=== PATIENT | female | born 1995 | race Caucasian/White ===

== ENCOUNTER 2016-09-18 19:38 | Outpatient (CLI) | payer OTHER ==
[~2016-09-18 19:38] MED LIST: BENTYL20 MG PO; COLACE100 MG PO; IBUPROFEN200 M1 PO; IMITREX50 MG PO; KEFLEX500 MG PO; LORADAMED10 MG PO; PYRIDIUM100 MG PO; SEROQUEL12.5 MG PO; TRI-ESTARYLLA1 EACH PO; birth control pill
[2016-09-18 20:02] VITALS: BP 133/80
[2016-09-18] MEDS ORDERED: PRENATAL TABLE1 EAC3 PO (20:38)
== END 2016-09-18 20:55 | disposition home or self-care (01) ==
LOC: LDRP-OP 19:38 → 2WEST 19:39 → LDRP-OP 09-19 10:39
DX: O48.0 Post-term pregnancy (principal); Z3A.41 41 weeks gestation of pregnancy
CPT/HCPCS: 59025; G0378

== ENCOUNTER 2016-09-19 21:22 | Outpatient (CLI) | payer OTHER ==
[~2016-09-19 21:22] MED LIST changes: +PRENATAL TABLE1 EAC3 PO
[2016-09-19 21:40] VITALS: BP 118/64
== END 2016-09-19 22:50 | disposition home or self-care (01) ==
LOC: LDRP-OP 21:22 → 2WEST 21:23 → LDRP-OP 09-21 09:26
DX: O48.1 Prolonged pregnancy (principal); Z3A.41 41 weeks gestation of pregnancy; O47.1 False labor at or after 37 completed weeks of gestation
CPT/HCPCS: 59025; G0378

== ENCOUNTER 2016-09-20 21:32 | Inpatient (IN) | payer OTHER ==
[~2016-09-20] VITALS: Ht 154.9 cm; Wt 79.1 kg
[2016-09-20 22:43] VITALS: BP 127/74
[2016-09-20 22:51] LABS: EOSINOPHIL (%) 0.8 % (0-5); EOSINOPHIL COUNT 0.1 K/uL (0-0.3); HEMATOCRIT 38.5 % (36.0-46.0); IMMATURE GRANULOCYTE (%) 0.9 % (0.0-0.7); IMMATURE GRANULOCYTE COUNT 0.1 K/uL; INSTRUMENT ABS NEUTROPHIL CT 7.2 K/uL; LYMPHOCYTE COUNT 1.5 K/uL (1.0-2.8); MCH 30.2 PG (29.0-34.0); MCV 88.7 FL (83-99); MEAN PLAT.VOLUME 13.1 uM^3 (9.5-12.4); MONOCYTE (%) 9.1 % (3-12); MONOCYTE COUNT 0.9 K/uL (0-0.8); NEUTROPHIL (%) 73.8 % (45-76); NEUTROPHIL COUNT 7.2 K/uL (1.8-6.4); PLATELET COUNT 167 K/uL (156-360); RBC DIS.WIDTH-CV 14.2 % (11.8-14.6); RBC DIS.WIDTH-SD 46.4 % (39-53); RED BLOOD COUNT 4.34 M/uL (3.80-5.20); WHITE BLOOD COUNT 9.8 K/uL (4.1-10.2)
[2016-09-20 23:29] VITALS: BP 129/82
[2016-09-21] VITALS (24 sets, daily range): BP systolic 101–139; BP diastolic 55–85
[2016-09-22 00:30] VITALS: BP 108/67
[2016-09-22 02:30] VITALS: BP 105/57
[2016-09-22 04:30] VITALS: BP 119/56
[2016-09-22 07:05] VITALS: BP 100/51
[2016-09-22 07:49] LABS: EOSINOPHIL (%) 0.1 % (0-5); HEMATOCRIT 22.9 % (36.0-46.0); IMMATURE GRANULOCYTE (%) 0.5 % (0.0-0.7); IMMATURE GRANULOCYTE COUNT 0.1 K/uL; INSTRUMENT ABS NEUTROPHIL CT 8.6 K/uL; LYMPHOCYTE COUNT 0.8 K/uL (1.0-2.8); MCH 30.1 PG (29.0-34.0); MCHC 34.1 G/DL (30.0-36.0); MCV 88.4 FL (83-99); MONOCYTE COUNT 0.9 K/uL (0-0.8); NEUTROPHIL (%) 82.5 % (45-76); NEUTROPHIL COUNT 8.6 K/uL (1.8-6.4); RBC DIS.WIDTH-CV 14.4 % (11.8-14.6); RBC DIS.WIDTH-SD 46.4 % (39-53); WHITE BLOOD COUNT 10.5 K/uL (4.1-10.2)
[2016-09-22 07:50] LABS: RED BLOOD COUNT 2.59 M/uL (3.80-5.20)
[2016-09-22 08:27] LABS: PLAT.SUFFICIENCY DECREASED
[2016-09-22 08:28] LABS: PLATELET COUNT 107 K/uL (156-360)
[2016-09-22 12:00] VITALS: BP 101/56
[2016-09-22 15:00] VITALS: BP 109/62
[2016-09-23 07:41] VITALS: BP 106/56
[2016-09-23 11:36] VITALS: BP 115/66
[2016-09-23 14:46] VITALS: BP 125/66
[2016-09-23 23:09] VITALS: BP 98/59
[2016-09-24 08:12] VITALS: BP 111/61
[2016-09-24] MEDS ORDERED: ENDOCET 5-3251 EACH PO (09:05)
[2016-09-24] MEDS ORDERED: PUMP IN STYLE1 EACH MC (09:05)
[2016-09-24] MEDS ORDERED: IBUPROFEN800 MG PO (09:05)
[2016-09-24] MEDS ORDERED: FERROUS SULFAT325 MG PO (09:05)
== END 2016-09-24 16:10 | disposition home or self-care (01) | DRG 765 ==
LOC: LDRP-OP 21:32 → 2WEST 21:34 → LDRP-OP 10-13 22:57
PROVIDERS: Advanced Practice Midwife; Obstetrics & Gynecology
DX: O62.2 Other uterine inertia (principal); D62 Acute posthemorrhagic anemia; Z3A.41 41 weeks gestation of pregnancy; Z37.0 Single live birth; O99.02 Anemia complicating childbirth; E66.9 Obesity, unspecified; O99.214 Obesity complicating childbirth; F41.9 Anxiety disorder, unspecified; O99.344 Other mental disorders complicating childbirth; O48.0 Post-term pregnancy; O77.0 Labor and delivery complicated by meconium in amniotic fluid; Z68.23 Body mass index [BMI] 23.0-23.9, adult
CPT/HCPCS: 59025; 85025; 86900; 86901; C1755; G0378; J0595; J1100; J1170; J1580; J1885; J2210; J2274; J2405; J2765; J3010; J7120; Q0169

== ENCOUNTER 2017-06-04 21:17 | Emergency (ER) | payer OTHER ==
[~2017-06-04] VITALS: Ht 154.9 cm; Wt 60.8 kg
[~2017-06-04 21:17] MED LIST changes: +ENDOCET 5-3251 EACH PO; +FERROUS SULFAT325 MG PO; +IBUPROFEN800 MG PO; +PUMP IN STYLE1 EACH MC
[2017-06-05] MEDS ORDERED: ZOFRAN ODT4 MG PO (00:40)
[2017-06-05] MEDS ORDERED: ULTRAM50 MG PO (00:40)
[2017-06-05 01:35] VITALS: BP 106/81
== END 2017-06-05 01:36 | disposition home or self-care (01) ==
LOC: EME 21:17
DX: G43.909 Migraine, unspecified, not intractable, without status migrainosus (principal); R11.2 Nausea with vomiting, unspecified; R19.7 Diarrhea, unspecified; F90.9 Attention-deficit hyperactivity disorder, unspecified type; F31.9 Bipolar disorder, unspecified; J30.9 Allergic rhinitis, unspecified; Z88.0 Allergy status to penicillin; Z88.6 Allergy status to analgesic agent; Z88.8 Allergy status to other drugs, medicaments and biological substances
CPT/HCPCS: 99281; 99284; J1200; J1885; J2765; J7030

== ENCOUNTER 2017-10-15 14:13 | Emergency (ER) | payer OTHER ==
[~2017-10-15] VITALS: Ht 154.9 cm; Wt 62.2 kg
[~2017-10-15 14:13] MED LIST changes: +ULTRAM50 MG PO; +ZOFRAN ODT4 MG PO
[2017-10-15] MEDS ORDERED: ZOLOFT50 MG PO (17:09)
[2017-10-15 17:29] VITALS: BP 128/92
== END 2017-10-15 17:30 | disposition home or self-care (01) ==
LOC: EME 14:13
DX: F53 Mental and behavioral disorders associated with the puerperium, not elsewhere classified (principal)
CPT/HCPCS: 90839; 99281; 99283